=== PATIENT | male | born 1985 | race Caucasian/White ===

== ENCOUNTER → 2016-09-09 | Day surgery (SDC) | payer OTHER ==
[~2016-09-09] VITALS: Ht 170.2 cm; Wt 83.9 kg
[~2016-09-09] MED LIST: METOPROLOL TART25 M1 PO
--- NOTE | 2016-09-09 12:45 | Operative Report ---
Operative/Inv Procedure Report Surgery Date: 09/09/16 Name of Procedure: right orchipexy Pre-Operative Diagnosis: rigth retractile testicle Post-Operative Diagnosis: same Estimated Blood Loss: less than 50ml Surgeon/Costume Technician: ALEX DODSON MD Anesthesia: local monitored anesthesi Complications: none Condition: stable Operative Indication: right retractile testicle Operative/Procedure Note Note: Operative dictation on patient Juan Schwab. He's 30-year-old male who experienced right retractile testicle that was causing him pain during sexual activity as well as the other times of lifting heavy objects. He was consented for right orchiopexy and was given the risks benefits and alternatives. All questions were answered. With patient was taken to the operating room placed on the operating table in the supine position. Patient was shaved of pubic hair in the area. Patient was prepped and draped in the standard sterile fashion. The right testicle was easily grasped and an incision was made in horizontal fashion at the lower end of the scrotum. The incision was taken down to the testicle and the testicle was delivered into the operative field. The appendix testis was bovied off. The thin layer overlying the testicle was opened completely and opened to the spermatic cord. Allis clamp was used to grasp the lower portion of the scrotal skin. A 2-0 nylon suture was then used to pex the testicle to the lower aspect of the scrotum with 2 sutures. The area was examined for any active bleeding and these were coagulated. The dartos layers were then closed with the running 3-0 Vicryl suture. The scrotal skin was then closed with interrupted 4-0 chromic suture. Patient tolerated procedure well. There was no active bleeding at the time of closure. The sponge and needle count were correct at the end of the case. Findings: normal testicle. Discharge Disposition: PACU
== END ==
LOC: STS 03:27
DX: Q55.22 Retractile testis (principal); N50.811 Right testicular pain
CPT/HCPCS: J0690; J2250